=== PATIENT | female | born 2000 | race Caucasian/White ===

== ENCOUNTER 2020-09-04 09:44 | Outpatient (CLI) | payer BC, SELFPAY ==
[2020-09-04 11:06] LABS: Hematocrit 39.7 % (37.0-47.0); Hemoglobin 13.6 g/dL (12.0-15.0); Mean Corpuscular HGB Conc 34.3 g/dl (32-36); Mean Corpuscular Hemoglobin 30.3 pg (26-34); Mean Corpuscular Volume 88.4 fl (80-100); Platelet Count Result 373 k/mm3 (150-375); Red Blood Count 4.49 M/mm3 (4.2-5.4); Red Cell Distribution Width 11.9 % (11.5-14.5); White Blood Count 7.3 K/mm3 (4.5-10.0)
--- NOTE | 2020-09-04 11:11 | ECG_ITS ---
Measurements Intervals [place] Rate: 68 P: 3 VA: 138 QRS: 64 QRSD: 95 T: 35 QT: 396 QTc: 423 Interpretive Statements SINUS RHYTHM WITH SINUS ARRHYTHMIA NORMAL ECG Electronically Signed On 09-04-2020 11:21:50 CDT by Paulo Lund D.O.
[2020-09-04 11:22] LABS: Alanine Aminotransferase 14 U/L (4-35); Albumin Level 4.5 g/dL (3.5-5.1); Alkaline Phosphatase 63 U/L (38-126); Anion Gap 7 mmol/L (8-16); Aspartate Amino Transferase 20 U/L (14-36); Bilirubin,Total 1.7 mg/dL (0.2-1.3); Blood Urea Nitrogen 9 mg/dL (7-17); Calcium 9.2 mg/dL (8.4-10.2); Carbon Dioxide 27 mmol/L (22-30); Chloride 107 mmol/L (98-107); Cholesterol 148 mg/dL (0-200); Estimated Glomerular Filt Rate > 60; Glucose 92 mg/dL (65-105); HDL Direct 37 mg/dL; Potassium 4.4 mmol/L (3.4-5.0); Sodium 141 mmol/L (137-145); Triglycerides 87 mg/dL (<150)
[2020-09-04 11:33] LABS: LDL Cholesterol Direct 92 mg/dL
[2020-09-04 11:35] LABS: Hemoglobin A1C 4.7 % (<5.7)
[2020-09-04 11:50] LABS: Thyroid Stimulating Hormone 0.788 uIU/mL (0.465-4.680)
[2020-09-04 12:01] LABS: Vitamin D 25 Hydroxy 51.3 ng/mL
[2020-09-09 12:37] LABS: Prolactin 9.6 ng/mL (***)
== END 2020-09-04 09:45 | disposition home or self-care (01) ==
DX: R00.2 Palpitations (principal); Z79.899 Other long term (current) drug therapy; F90.0 Attention-deficit hyperactivity disorder, predominantly inattentive type
CPT/HCPCS: 36415; 80053; 80061; 82306; 83036; 84146; 84443; 85027; 93005